=== PATIENT | male | born 1930 | race Caucasian/White ===

== ENCOUNTER 2018-10-29 20:02 | Emergency (ER) | payer MEDICARE, OTHER ==
[2018-10-29] MEDS ORDERED: LIDOCAINE Urojet 5 ML JEL MM ONE (20:58)
--- NOTE | 2018-10-29 22:16 | ED Physician Documentation ---
Male Genitourinary Problems - HISTORIAN Historian: patient - HPI Stated Complaint: salinas cath not draining Chief Complaint: Male Genitourinary Problems Additional Information: Patient presents to ED with a 2 hour history of malfuncting Salinas. Patient states there is no urine coming out of the salinas and his bladder feels full. He is unable to flush the salinas. He has the catheter in place for enlarged prostate. It has been over a month since it has been changed. He states he was trying to make it until October 31 when he has Urology appointment at . . Onset: hours (2) Duration: continues in ED Severity: moderate - Associated Symptoms Problems Urinating: other (salinas with no urine return, unable to flush) Flank Pain: none Abdominal Pain: suprapubic (pressure) - ROS CONST: denies: fever, sweating GI/: denies: nausea, vomiting MS/SKIN/LYMPH: denies: ankle swelling CVS/RESP: denies: chest pain, shortness of breath EYES/ENT: none NEURO/PSYCH: denies: dizziness - PAST HX Past History: enlarged prostate Cardiac Disease: none Surgeries/Procedures: none Allergies/Adverse Reactions: Allergies Allergy/AdvReac Type Severity Reaction Status Date / Time Sulfa (Sulfonamide Allergy Intermediate Rash Verified 10/29/18 21:38 Antibiotics) Home Medications: Ambulatory Orders Medication Instructions Recorded Finasteride 5 mg PO D 07/26/16 Lorazepam 0.5 mg PO HS 07/26/16 Quinapril HCl [Accupril] 10 mg PO D 07/26/16 Tamsulosin HCl [Flomax] 0.4 mg PO D 07/26/16 - SOCIAL HX Smoking History: non-smoker Alcohol Use: none Drug Use: none - FAMILY HX Family History: none - VITAL SIGNS Vital Signs: Vital Signs Temp Pulse Resp BP Pulse Ox 98.6 F 108 H 18 141/79 99 10/29/18 20:03 10/29/18 20:03 10/29/18 20:03 10/29/18 20:03 10/29/18 20:03 - REVIEWED ASSESSMENTS Nursing Assessment Reviewed: Yes Vitals Reviewed: Yes Progress - Results/Orders Results/Orders: CT pelvis without contrast History: salinas catheter malfunction pt states salinas has been placed for a month, has noticed lack of output x4 hours, states a hx of prostate enlargement the No comparison studies The bladder is largely distended, air locules are seen within the distended urinary bladder. Bladder is thick walled. The prostate is largely enlarged with prostatic calcification, it is nodular and heterogeneous Calcification with prominent soft tissue is noted at the bladder base on either side of the prostat e No obvious bowel obstruction. Atherosclerotic calcification of the aorta. Nonobstructing calculus measuring 3 mm at inferior left renal pole. No acute osseous pathology. Degenerative changes of the lumbosacral spine. Impression: 1. The urinary bladder is largely distended, is incompletely imaged, measures approximately 18.3 cm craniocaudal x 11.4 cm transverse. Bladder diverticula suggestive of bladder outlet obstruction. Bladder is thick walled.. Air locules are noted within the urinary bladder and may be related to catheterization. 2. Salinas catheter protrudes tip in the urinary bladder, unclear if it is blocked. 3. Largely enlarged heterogeneous nodular prostate which indents the urinary bladder. Prostatic calcification is present. Recommend evaluation to exclude prostatic malignancy. 4. Prominent soft tissue with areas of calcification is noted at urinary bladder base concerning for malignancy 5. Suggestion of left renal nonobstructing calculus, incompletely imaged Electronically signed on Oct 29, 2018 10:10:43 PM INSTRUCTIONAL SUPPORT SERVICES DIRECTOR by: Janie Tony - Progress Progress: [address] results. Will try to flush salinas again. Patient wishes to go to ER. [id number] RN unable to flush salinas. Will discharge patient. He will go to ER by private vehicle. ED Results Lab/Radiology - Orders Orders: ED Orders Category Date Time Status Irrigate Catheter [Intermittent catheter irrigati] PRN Care 10/29/18 21:[address] PELVIS W/O CONTRAST Stat Exams 10/29/18 Ordered UA W/MICRO IF INDICATED Routine Lab 10/29/18 20:55 Ordered LIDOCAINE Urojet [Xylocaine] Med 10/29/18 20:58 Discontinued 5 ml MM .STK-MED ONE Male Genitourinary Problems - EXAM General Appearance: no acute distress, alert Abdomen: non-tender, distended bladder Genitals: nml inspection EENT: ENT inspection normal Neck: nml inspection Respiratory: no resp distress, breath sounds normal CVS: reg rate & rhythm, heart sounds normal Back: non-tender. No: CVA tenderness Extremities: no pedal edema Neuro/Psych: oriented X3 Skin: warm/dry Discharge Clincal Impression: Salinas catheter problem Qualifiers: Encounter type: initial encounter Qualified Code(s): T83.9XXA - Unspecified complication of genitourinary prosthetic device, implant and graft, initial encounter Referrals: Primary Doctor,No [Primary Care Provider] - 2 Days Additional Instructions: 1. Go directly [facility] Emergency department. Condition: Stable Disposition: 01 HOME, SELF-CARE Decision to Admit: NO Date of Decison to Admit: 10/29/18 Decision Time: 22:31
--- NOTE | 2018-10-29 23:25 | Diagnostic Imaging Report ---
MARYJANE BRYANT [facility] [id number] [facility] [address] [place], [place]. [address] Report Submission Date: Oct 29, 2018 10:10:43 PM DOG RACES MANAGER Patient Study Name: BHUPINDER TOWNSEND Date: Oct 29, 2018 9:47:53 PM DOG RACES MANAGER Modality Type: CT\SR Gender: M Description: CT PELVIS W/O CONTRAST : 31 Institution: [facility] Physician: MARYJANE BRYANT CT pelvis without contrast History: salinas catheter malfunction pt states salinas has been placed for a month, has noticed lack of output x4 hours, states a hx of prostate enlargement the No comparison studies The bladder is largely distended, air locules are seen within the distended urinary bladder. Bladder is thick walled. The prostate is largely enlarged with prostatic calcification, it is nodular and heterogeneous Calcification with prominent soft tissue is noted at the bladder base on either side of the prostate No obvious bowel obstruction. Atherosclerotic calcification of the aorta. Nonobstructing calculus measuring 3 mm at inferior left renal pole. No acute osseous pathology. Degenerative changes of the lumbosacral spine. Impression: 1. The urinary bladder is largely distended, is incompletely imaged, measures approximately 18.3 cm craniocaudal x 11.4 cm transverse. Bladder diverticula suggestive of bladder outlet obstruction. Bladder is thick walled.. Air locules are noted within the urinary bladder and may be related to catheterization. 2. Salinas catheter protrudes tip in the urinary bladder, unclear if it is blocked. 3. Largely enlarged heterogeneous nodular prostate which indents the urinary bladder. Prostatic calcification is present. Recommend evaluation to exclude prostatic malignancy. 4. Prominent soft tissue with areas of calcification is noted at urinary bladder base concerning for malignancy 5. Suggestion of left renal nonobstructing calculus, incompletely imaged Electronically signed on Oct 29, 2018 10:10:43 PM DOG RACES MANAGER by: Janie MAURICE
[2018-10-30 00:42] VITALS: BP 146/80
== END 2018-10-29 22:40 | disposition home or self-care (01) ==
LOC: ED 20:02
DX: N32.89 Other specified disorders of bladder (principal); T83.9XXA Unspecified complication of genitourinary prosthetic device, implant and graft, initial encounter; N40.2 Nodular prostate without lower urinary tract symptoms
CPT/HCPCS: 72192; 99283; 99284